=== PATIENT | female | born 1960 | race Caucasian/White ===

== ENCOUNTER → 2017-09-23 11:00 | Outpatient (CLI) | payer OTHER, SELFPAY ==
--- NOTE | 2017-09-23 | DI.MG.S_ITS ---
BILATERAL DIGITAL SCREENING MAMMOGRAM 3D/2D WITH CAD: 09/23/2017 CLINICAL: Routine screening. Comparison is made to exams dated: 07/13/2015 mammogram, 07/01/2014 mammogram, and 07/08/2012 mammogram - [facility]. There are scattered fibroglandular elements in both breasts. Current study was also evaluated with a Computer Aided Detection (CAD) system. Bilateral breast implants are intact. No significant masses, calcifications, or other findings are seen in either breast. There has been no significant interval change. IMPRESSION: NEGATIVE There is no mammographic evidence of malignancy. A 1 year screening mammogram is recommended. This exam was interpreted at Station ID: [id number]. NOTE: For mammograms, a report in lay terms will be sent to the patient. Approximately 15% of breast malignancies will not be visualized mammographically. In the management of a palpable breast mass, a negative mammogram must not discourage biopsy of a clinically suspicious lesion. Electronically Signed By: Melvin kennedy/adalberto:09/23/2017 17:46:18 letter sent: Normal Exam ACR BI-RADS Category 1: Negative 3341F
== END ==
PROVIDERS: Visit Provider Family Medicine
DX: Z12.31 Encounter for screening mammogram for malignant neoplasm of breast (principal)
CPT/HCPCS: 77063; 77067

== ENCOUNTER → 2019-10-02 12:47 | Outpatient (CLI) | payer OTHER, SELFPAY ==
--- NOTE | 2019-10-02 | DI.MG.S_ITS ---
BILATERAL DIGITAL SCREENING MAMMOGRAM 3D/2D WITH CAD WITH AUGMENTATION: 10/02/2019 CLINICAL: Routine screening. Comparison is made to exams dated: 09/23/2017 mammogram, 07/13/2015 mammogram, and 07/01/2014 mammogram - [facility]. The tissue of both breasts is heterogeneously dense. This may lower the sensitivity of mammography. Current study was also evaluated with a Computer Aided Detection (CAD) system. Bilateral prepectoral silicone implants are intact. There is a new 8 mm irregular asymmetry in the left breast middle depth central to the nipple seen on the mediolateral oblique view only. No other significant masses, calcifications, or other findings are seen in either breast. IMPRESSION: INCOMPLETE: NEEDS ADDITIONAL IMAGING EVALUATION The new 8 mm irregular asymmetry in the left breast is indeterminate. Additional views with possible ultrasound are recommended. This exam was interpreted at Station ID: [id number]. NOTE: For mammograms, a report in lay terms will be sent to the patient. Approximately 15% of breast malignancies will not be visualized mammographically. In the management of a palpable breast mass, a negative mammogram must not discourage biopsy of a clinically suspicious lesion. Electronically Signed By: Zoe bowman/adalberto:10/02/2019 14:06:28 letter sent: Additional Imaging Needed ACR BI-RADS Category 0: Incomplete 3340F
== END ==
PROVIDERS: Referring Provider Nurse Practitioner Family; Visit Provider Nurse Practitioner Family
DX: Z12.31 Encounter for screening mammogram for malignant neoplasm of breast (principal)
CPT/HCPCS: 77063; 77067

== ENCOUNTER → 2020-07-21 10:58 | Outpatient (CLI) | payer OTHER, SELFPAY ==
[2020-07-21] MEDS: COVID-19 VACC #1, MRNA(MOD) 100 MCG/0.5 ML VIAL IM (11:03)
== END ==
PROVIDERS: Visit Provider Internal Medicine
DX: Z23 Encounter for immunization (principal)
CPT/HCPCS: 0011A; 91301

== ENCOUNTER → 2020-08-18 11:02 | Outpatient (CLI) | payer OTHER, SELFPAY ==
[2020-08-18] MEDS: COVID-19 VACC #2, MRNA(MOD) 100 MCG/0.5 ML VIAL IM (11:06)
== END ==
PROVIDERS: Visit Provider Internal Medicine
DX: Z23 Encounter for immunization (principal)
CPT/HCPCS: 0012A; 91301

== ENCOUNTER → 2023-02-05 12:30 | Outpatient (CLI) | payer OTHER, SELFPAY ==
--- NOTE | 2023-02-05 | DI.MG.S_ITS ---
BILATERAL DIGITAL SCREENING MAMMOGRAM 3D/2D WITH CAD WITH AUGMENTATION: 02/05/2023 CLINICAL: Routine screening. Comparison is made to exams dated: 10/02/2019 mammogram, 09/23/2017 mammogram, and 07/13/2015 mammogram - [facility]. Both breasts are heterogeneously dense, which may obscure small masses (category c / 51-75% glandular tissue). Current study was also evaluated with a Computer Aided Detection (CAD) system. Bilateral breast implants are intact. No significant masses, calcifications, or other findings are seen in either breast. There has been no significant interval change. IMPRESSION: NEGATIVE There is no mammographic evidence of malignancy. A 1 year screening mammogram is recommended. Based on the Tyrer Cuzick model (a risk assessment model) the patient's lifetime risk is 11.9% and her 10 year risk is 5.0%. According to the ACR, ACS, and NCCN guidelines, an annual breast MRI exam along with mammogram is recommended if the patient's lifetime risk is 20% or greater. This exam was interpreted at Station ID: [id number]. NOTE: For mammograms, a report in lay terms will be sent to the patient. Approximately 15% of breast malignancies will not be visualized mammographically. In the management of a palpable breast mass, a negative mammogram must not discourage biopsy of a clinically suspicious lesion. Electronically Signed By: Yuan friedman/adalberto:02/05/2023 12:55:26 letter sent: Normal Exam ACR BI-RADS Category 1: Negative 3341F
== END ==
PROVIDERS: PCP Nurse Practitioner Family; Referring Provider Nurse Practitioner Family; Visit Provider Nurse Practitioner Family
DX: Z12.31 Encounter for screening mammogram for malignant neoplasm of breast (principal)
CPT/HCPCS: 77063; 77067

== ENCOUNTER → 2024-02-14 15:47 | Outpatient (CLI) | payer OTHER, SELFPAY ==
--- NOTE | 2024-02-14 15:49 | DI.MG.S_ITS ---
BILATERAL DIGITAL SCREENING MAMMOGRAM 3D/2D WITH CAD WITH AUGMENTATION: 02/14/2024 CLINICAL: Routine screening. Comparison is made to exams dated: 02/05/2023 mammogram, 10/02/2019 mammogram, and 09/23/2017 mammogram - [facility]. The breasts are heterogeneously dense, which may obscure small masses (category c / 51-75% glandular tissue). Current study was also evaluated with a Computer Aided Detection (CAD) system. Bilateral breast implants are intact. No significant masses, calcifications, or other findings are seen in either breast. There has been no significant interval change. IMPRESSION: NEGATIVE There is no mammographic evidence of malignancy. A 1 year screening mammogram is recommended. Based on the Tyrer Cuzick model (a risk assessment model) the patient's lifetime risk is 11.6% and her 10 year risk is 5.1%. According to the ACR, ACS, and NCCN guidelines, an annual breast MRI exam along with mammogram is recommended if the patient's lifetime risk is 20% or greater. This exam was interpreted at Station ID: [id number]. NOTE: For mammograms, a report in lay terms will be sent to the patient. Approximately 15% of breast malignancies will not be visualized mammographically. In the management of a palpable breast mass, a negative mammogram must not discourage biopsy of a clinically suspicious lesion. Electronically Signed By: Kristian oswald/adalberto:02/15/2024 01:18:47 letter sent: Normal Exam ACR BI-RADS Category 1: Negative
== END ==
PROVIDERS: Visit Provider Student in an Organized Health Care Education/Training Program
DX: Z12.31 Encounter for screening mammogram for malignant neoplasm of breast (principal); R92.333 Mammographic heterogeneous density, bilateral breasts
CPT/HCPCS: 77063; 77067

== ENCOUNTER → 2025-01-27 20:28 | Outpatient (ROUT) | payer OTHER, SELFPAY | PROVIDERS: Visit Provider Registered Nurse | DX: L03.90 Cellulitis, unspecified (principal); L73.8 Other specified follicular disorders; Z79.899 Other long term (current) drug therapy | CPT/HCPCS: 87070; 87075; 87102; 87205 ==

== ENCOUNTER 2025-03-26 11:03 | Day surgery (SDC) | payer OTHER, SELFPAY ==
[2025-03-24 11:50] VITALS: BMI 29.0
[2025-03-26] VITALS (7 sets, daily range): BP systolic 100–123; BP diastolic 67–73; PULSE 66–90; RESP 15–21; TEMP 36.4–36.8; O2SAT 95–98
--- NOTE | 2025-03-26 | PATH_ITS ---
[facility] Accession Number: [id number] No. of containers..02 Tissue . 01 Material submitted: . PART A: endometrium - ENDOMETRIAL MASS PART B: endometrium - ENDOMETRIAL CURETTINGS . 01 Diagnosis: A. ENDOMETRIAL MASS, CURETTAGE: Benign endometrial polyp with cystic atrophy. Negative for endometrioid intraepithelial neoplasia and malignancy. . B. ENDOMETRIUM, CURETTAGE: Atrophic endometrium and fragments of benign endometrial polyp. Separate fragments of unremarkable cervical transformation zone tissue. Negative for endometrioid intraepithelial neoplasia and malignancy. [facility] 04/07/2025 1529 Local . 01 Electronically signed: . Akila Goncalves DO, Pathologist NPI- [id number] . 01 Gross description: . A. Received in formalin with two patient identifiers and endometrial mass and consists of a 3.5 x 2.5 x 1.1 cm, 4-gram aggregate of white, soft, morselized soft tissue fragments admixed with scant clotted blood. The specimen is filtered and entirely submitted in cassettes A1-A2. B. Received in formalin with two patient identifiers, and endometrial curettings and consist of a 2.0 x 0.8 x 0.2 cm aggregate of blood tinged mucus and sullivan soft tissue which is scraped from a sponge, filtered, and entirely submitted in cassette B1. ([id number]) /MRV 03/28/2025 1612 Local . 01 Pathologist provided ICD-10: N95.0 . 01 CPT . 589710, 234838 Specimen Comment: A courtesy copy of this report has been sent to [facility] Performed at: [address], [place], [place] [id number] MD Melvin Hunt MD Phone: [phone]
[2025-03-26] MEDS: LACTATED RINGERS 1,000 ML 42 ML IV ×2 (11:17→14:03)
[2025-03-26] MEDS: ACETAMINOPHEN IV 1,000 MG/100 ML VIAL 400 MG IV (11:19)
--- NOTE | 2025-03-26 12:09 | SUR.OPER ---
Lithotomy on padded OR bed, head on pillow, arms secured on padded arm boards at <90 degrees abduction.Safety strap to torso. Legs secured in padded yellow fins stirrups.
--- NOTE | 2025-03-26 12:39 | PM.PREOP ---
Pre-operative Note COVID-19 COVID-19 status: Not tested Interval Note History & Physical reviewed/Exam performed by Physician: Yes Changes to H&P: No ASA Class (for procedural sedation): II
--- NOTE | 2025-03-26 13:52 | PM.GYNOP.1 ---
Operative Date/Time/Diagnoses Date of procedure: 03/26/25 Time of procedure: 12:45 Pre-op diagnosis: Postmenopausal bleeding, Endometrial mass Post-op diagnosis: same Procedure & Clinicians Procedure: Procedures Operation Date: 03/26/25 12:30 Actual Procedure Side Surgeon p Hysteroscopic excision of endometrial mass, Dilation and Curettage Not Applicable Cindy Perea DO Indications: Patient is a 64yo postmenopausal female presented to clinic as referral from her PCP due to postmenopausal bleeding and a pelvic ultrasound concerning for an endometrial mass. Ultrasound noted a 5cm x 3cm solid and cystic heterogenous mass filling the endometrium. Considering Ultrasound findings we discussed EMB in office and proceeding with hysteroscopy vs proceeding directly to hysteroscopy. Paitent strongly desired to avoid an endometrial biopsy due to severe discomfort with procedures in the past and decision was made to proceed directly to hysteroscopic resection of endometrial mass with curettage. Surgeon: Cindy Perea Anesthesia Type: General Operative Notes Findings: The cervix is dilated on ititial exam with the endometrial mass protruding down within the endocervical canal but not to the external os. The uterine fundus was visualized and appeared normal with the left ostia well visualized. In the lower segment a large, mobile mass visualized, soft with no solid appearing componants, stalk noted on the right lower segment and protruding down into the cervical canal. Closure Type: primary Specimen(s): endometrial curettings and other (endometrial mass) Applied: none Estimated blood loss (mL): 10 Blood products transfused: none Procedure in detail: The patient was taken to the operating room where she was properly prepped and draped in sterile manner under general anesthesia. After bimanual examination, the cervix was exposed with a weighted vaginal speculum and the anterior lip of the cervix grasped with a tenaculum. The endocervical canal was already dilated enough to accomodate the large myosure hysteroscope. The hysteroscope was then introduced into the uterine cavity using sterile saline solution as a distending media and with attached video camera. The endometrial cavity was distended with fluids and the cavity visualized. The above findings were noted. The large myosure device was introduced and used to remove the entire mass including into the cervical canal. The hysteroscope was then reintroduced and pictures taken once the mass was removed with no decidual pathology visible. The hysteroscope was then removed. The patient tolerated the procedure well. A large sharp curette was then used to obtain a small amount of tissue, which was the sent seperately to pathologist for analysis. The instrument was removed from the vaginal vault. The patient was sent to recovery area in satisfactory postoperative condition fluid deficit- 480ml cutting time 1:09mins Complications: none Post-operative Condition: stable Disposition: PACU Plan for aftercare: pelvic rest x 2 weeks
[2025-03-26] MEDS: ONDANSETRON 4 MG/2 ML INJ IV (14:04)
== END 2025-03-26 14:58 | disposition home or self-care (01) ==
PROVIDERS: PCP Student in an Organized Health Care Education/Training Program; Referring Provider Obstetrics & Gynecology; Visit Provider Obstetrics & Gynecology
PROC: (CPT 58561; principal; 2025-03-26 12:30)
DX: N95.0 Postmenopausal bleeding (principal); N93.9 Abnormal uterine and vaginal bleeding, unspecified; E78.00 Pure hypercholesterolemia, unspecified; E66.3 Overweight; Z80.49 Family history of malignant neoplasm of other genital organs; N84.0 Polyp of corpus uteri
CPT/HCPCS: 58561; 58558; J0131; J1100; J1885; J2405; J2704; J3010; J7120